=== PATIENT | male | born 1945 | race Caucasian/White ===

== ENCOUNTER 2017-07-18 15:46 | Emergency (ER) | payer OTHER, MEDICARE ==
[2017-07-18 16:01] VITALS: BP 219/95; BMI 25.2
[2017-07-18] MEDS ORDERED: TORADOL 60 MG VIAL IM ONE (16:16)
--- NOTE | 2017-07-18 16:17 | DR.GENAD ---
HPI - PCP Primary Care Physician: Dr. Morton - HPI Comment HPI Comment: HISTORY BELOW. - Complaint/Symptoms Chief Complaint Doctors Comments: PAIN LEFT FLANK GOING INTO LLQ OF ABDOMEN SINCE THIS AM. PAIN STARTED IN LT FLANK AND LOWER BACK. PAIN GETTING WORSE. NO FEVER OR DYSURIA. Chief Complaint:: Pt woke up this morning with pain in his left lower back. The pain is described as constant and throbbing and stabbing and radiates into left lower abdomen. Self Treatment fo Chief Complaint: [place] 10/325 at 13:45 with no relief - Nurses notes reviewed Nurses Notes Review: Yes - Source History Provided: Patient - Mode of Arrival Mode of Arrival: Ambulatory - Timing Onset of Chief Complaint: 07/18/17 Came on: Suddenly - Duration Duration: Constant Duration: Hours - Severity Severity: Moderate PMH - PMH Past Medical History: Yes Past Medical History: Dyslipidemia, Hypertension, Kidney Stones Past Surgical History: Yes Surgical History: Ortho Surgery Past Surgical History Comment: cataract. back surgery x 3. neck surgery x 2. right shoulder surgery - Family History History of Family Medical Conditions: Yes Family Medical History: Coronary Artery Disease, Hypertension - Social History Does patient currently use any type of tobacco product: Yes Have you used tobacco products in the last 12 months: Yes Type of Tobacco Use: Cigarettes Does any household member use tobacco: Yes Alcohol Use: None Do you use any recreational Drugs:: No Lives With: Spouse - infectious screening In the last 2 months have you had wt loss of >10#?: NO Have you had fever, night sweats or hemotysis?: No Have you traveled outside the country in the last 6 months?: No Isolation: Standard ROS - Review of Systems Constitutional: No Symptoms Reported Eyes: No Symptoms Reported ENTM: No Symptoms Reported Respiratoy: No Symptoms Reported Cardiovascular: No Symptoms Reported Gastrointestinal/Abdominal: Abdominal Pain, Nausea Genitourinary: Pain (LT FLANK PAIN) Neurological: No Symptoms Reported Musculoskeletal: Back Pain ( HAVE CHRONIC BACK PAIN BUT IS WORSE TODAY.), Back ( LT FLANK PAIN) Integumentary: No Symptoms Reported Hematologic/Lymphatic: No Symptoms Reported Endocrine: No Symptoms Reported All Other Systems: Reviewed and Negative PE - Vital Signs Vitals: Temperature 97.1 F Pulse Rate 67 Respiratory Rate 20 Blood Pressure 219/95 O2 Sat by Pulse Oximetry 100 - General Limitations: No Limitations General Appearance: Alert - Head Head Exam: Normal Inspection - Eyes Eye exam: Normal Appearance - ENT ENT Exam: Normal External Ear Exam External Ear Exam: Normal External Inspection TM/Canal Exam: Bilateral Normal Nose Exam: Normal Nose Exam Mouth Exam: Normal Inspection Throat Exam: Normal Inspection - Neck Neck Exam: Trachea Midline - Chest Chest Inspection: Symmetric Chest Wall Rise - Respiratory Respiratory Exam: Normal Lung Sounds Bilat Respiratory Exam: Bilateral Clear to Auscultation - Cardiovascular Cardiovascular Exam: Regular Rate, Normal Rhythm, Normal Heart Sounds - Abdominal Exam Abdominal Exam: Normal Bowel Sounds, Soft, Tenderness Abdominal Tenderness: LLQ, Moderate - Back Back Exam: (L) CVA Tenderness - Neurologic Neurological Exam: Alert, Oriented X3 - Psychiatric Psychiatric Exam: Normal Affect, Normal Mood - Skin Skin Exam: Normal Color MDM - Additional Information Additional Information Obtained From: Family - Differential Diagnosis Differential Diagnosis: KIDNEY STONE, UTI, FLANK PAIN, ANDOMINAL PAIN, MUSCULOSKELETAL PAIN. Course - Treatment Treatment: SEE ORDERS. IM TORADOL IN ED. PAIN IMPROVE. - Education/Counseling Education/Counseling: Patient, Family, Education Educated On: Diagnosis, Needs for Follow Up ROR - Labs Reviewed Laboratory Results Reviewed?: Yes Result Diagrams: 07/18/17 18:04 07/18/17 18:04 Laboratory: WBC 8.1 X10^3/uL (3.6-10.0) 07/18/17 18:04 RBC 4.41 X10^6/uL (4.7-6.0) L 07/18/17 18:04 Hgb 13.5 g/dL (13.5-18.0) 07/18/17 18:04 Hct 37.9 % (42.0-54.0) L 07/18/17 18:04 MCV 85.9 fL (80.0-100.0) 07/18/17 18:04 MCH 30.7 pg (27.0-34.0) 07/18/17 18:04 MCHC 35.7 g/dL (33.0-35.0) H 07/18/17 18:04 RDW 14.3 % (11.6-16.5) 07/18/17 18:04 Plt Count 255 X10^3/uL (150.0-450.0) 07/18/17 18:04 MPV 7.9 fL (7.4-11.0) 07/18/17 18:04 Neut % (Auto) 77.2 % (42.0-75.0) H 07/18/17 18:04 Lymph % (Auto) 14.3 % (21.0-51.0) L 07/18/17 18:04 [place] % (Auto) 6.6 % (0.0-13.0) 07/18/17 18:04 Eos % (Auto) 0.9 % (0.9-2.9) 07/18/17 18:04 Baso % (Auto) 1.0 % (0.2-1.0) 07/18/17 18:04 Neut # (Auto) 6.2 x10^3/uL (2.2-4.8) H 07/18/17 18:04 Lymph # (Auto) 1.2 X10^3/uL (1.3-2.9) L 07/18/17 18:04 [place] # (Auto) 0.5 x10^3/uL (0.3-0.8) 07/18/17 18:04 Eos # (Auto) 0.1 x10^3/uL (0.0-0.2) 07/18/17 18:04 Baso # (Auto) 0.1 X10^3/uL (0.0-0.1) 07/18/17 18:04 Absolute Nucleated RBC 0.0 /100WBC 07/18/17 18:04 Sodium 134 mmol/L (136-145) L 07/18/17 18:04 Corrected Sodium 135 mmol/L (136-145) L 07/18/17 18:04 Potassium 3.7 mmol/L (3.5-5.1) 07/18/17 18:04 Chloride 99 mmol/L (98-107) 07/18/17 18:04 Carbon Dioxide 27.7 mmol/L (21-32) 07/18/17 18:04 BUN 18 mg/dL (7-18) 07/18/17 18:04 Creatinine 1.33 mg/dL (0.70-1.30) H 07/18/17 18:04 Est GFR (MDRD) Af Amer > 60 (>60) 07/18/17 18:04 Est GFR (MDRD) Non-Af 56 (>60) L 07/18/17 18:04 Glucose 137 mg/dL (65-99) H 07/18/17 18:04 Calcium 8.3 mg/dL (8.5-10.1) L 07/18/17 18:04 Corrected Calcium 8.9 mg/dL (8.5-10.1) 07/18/17 18:04 Total Bilirubin 0.20 mg/dL (0.2-1.0) 07/18/17 18:04 AST 16 Units/L (15-37) 07/18/17 18:04 ALT 23 Units/L (12-78) 07/18/17 18:04 Alkaline Phosphatase 76 Units/L (46-116) 07/18/17 18:04 Total Protein 7.1 g/dL (6.4-8.2) 07/18/17 18:04 Albumin 3.2 g/dL (3.4-5.0) L 07/18/17 18:04 Globulin 3.9 g/dL (2.5-4.5) 07/18/17 18:04 Albumin/Globulin Ratio 0.8 Ratio (1.1-2.1) L 07/18/17 18:04 Specimen Type Clean catch urine 07/18/17 16:11 Urine Color Yellow (YELLOW) 07/18/17 16:11 Urine Appearance Clear (CLEAR) 07/18/17 16:11 Urine pH 5.0 (5.0 - 8.0) 07/18/17 16:11 Ur Specific [place] 1.020 (1.000-1.030) 07/18/17 16:11 Urine Protein Negative (NEGATIVE) 07/18/17 16:11 Urine Glucose (UA) Negative (NEGATIVE) 07/18/17 16:11 Urine Ketones Negative (NEGATIVE) 07/18/17 16:11 Urine Occult Blood 3+ (NEGATIVE) 07/18/17 16:11 Urine Nitrite Negative (NEGATIVE) 07/18/17 16:11 Urine Bilirubin Negative (NEGATIVE) 07/18/17 16:11 Urine Urobilinogen Normal (NORMAL) 07/18/17 16:11 Ur Leukocyte Esterase Negative (NEGATIVE) 07/18/17 16:11 Urine RBC 3-5 /HPF (NONE SEEN) 07/18/17 16:11 Urine WBC 0-2 /HPF (NONE SEEN) 07/18/17 16:11 Ur Squamous Epith Cells Negative /HPF (NEGATIVE) 07/18/17 16:11 Urine Bacteria Negative /HPF (NEGATIVE) 07/18/17 16:11 Ur Culture Indicated? No/not indicated 07/18/17 16:11 - XRAY XRAY Interpreted by: Radiologist XRAY Findings: REPORT DISCUSS WITH PATIENT AND HIS FAMILY. - Diagnosis Discharge Problem: Kidney stone on left side - Discharge Plan Disposition: HOME, SELF-CARE Condition: Stable Prescriptions: Tamsulosin HCl [Flomax] 0.4 mg PO DAILY #30 cap - Follow ups/Referrals Follow ups/Referrals: MARLIN MORTON [Primary Care Provider] - 07/19/17 - Instructions Instructions: Kidney Stones, [id number] Additional Instructions: SEE YOUR UROLOGIST IN AM. RETURN TO ED IF WORSE.
[2017-07-18] MEDS ORDERED: TORADOL 60 MG VIAL ONE (16:19)
[2017-07-18 16:21] LABS: BILIRUBIN,URINE NEGATIVE (NEGATIVE); BLOOD/HEMOGLOBIN,URINE 3+ (NEGATIVE); GLUCOSE, URINE NEGATIVE (NEGATIVE); KETONES,URINE NEGATIVE (NEGATIVE); LEUKOCYTE ESTERASE ,URINE NEGATIVE (NEGATIVE); NITRITES,URINE NEGATIVE (NEGATIVE); PROTEIN,URINE NEGATIVE (NEGATIVE); UROBILINOGEN,URINE NORMAL (NORMAL)
[2017-07-18 16:27] LABS: APPEARANCE,URINE CLEAR (CLEAR); BACTERIA,URINE NEGATIVE /HPF (NEGATIVE); COLOR,URINE YELLOW (YELLOW); SQUAMOUS EPITHELIAL CELL,UR NEGATIVE /HPF (NEGATIVE)
--- NOTE | 2017-07-18 16:55 | CT ---
HISTORY: Left flank pain. Lower abdominal pain. Study: Computed tomography of the abdomen and pelvis: Multiple axial images were obtained throughou t the abdomen and pelvis. Intravascular contrast was not administered. Oral contrast was not admini stered. Radiation dose reduction techniques utilized. Comparison: 04/01/2014 Findings: There appears to be mild focal scarring in the right lower lobe, unchanged from the prior examination . No pulmonary nodules or parenchymal infiltrates are identified. Coronary arterial calcification i s noted. The heart size is normal. No appreciable pericardial effusion is noted. Examination of the abdomen demonstrates a hypodense lesion within the left lobe of the liver measuring approximately 13 mm in ma ximum dimension, unchanged. A very tiny 1 is also noted measuring approximately 2 mm in maximum dime nsion, unchanged. A hypodense lesion within the central aspect of the right lobe of the liver is als o unchanged. One in the inferior aspect of the right lobe of the liver adjacent to the gallbladder f anabell is unchanged. There are other scattered hypodense lesions, unchanged. These most likely are sm all cysts. The gallbladder is normal per CT criteria. No appreciable biliary duct dilatation is not ed. The pancreas is normal in its appearance. The spleen is normal in its appearance. The left adr enal gland is minimally thickened, unchanged. There is a hypodense mass in the genu of the right adr enal gland measuring 2 cm in maximum dimension consistent with an adenoma. The abdominal aorta shows mild atherosclerotic change. There is moderate in the common iliac arteries and their major branche s. The right kidney shows focal scarring in the lower pole of a moderate degree, unchanged. The left ki dney demonstrates mild intrarenal hydronephrosis with vbds-ys-vrgbqwro dilatation of the renal pelvis and mild of the proximal right ureter. There is a large calculus in the lower pole of the left kidn ey that is nonobstructing measuring approximately 17 mm in maximum dimension, increased in size. The re is a 2nd measuring approximately the same dimension. There is moderate perinephric stranding on t he left. There is minimal periureteral soft tissue stranding on the left. The left ureter remains m inimally to mildly dilated as it progresses to the bladder. There is what appears to be a partially obstructing calculus at the left ureteral vesical junction measuring approximately 5 mm in diameter. The right ureter as visualized is normal. The urinary bladder is nondistended. It is minimally thi ck wall. Mild prostate enlargement is noted. Seminal vesicles are symmetric. No evidence of free p elvic fluid or ascites is noted. The stomach is mildly distended with food material. The duodenum is borderline distended proximally. The small bowel is nondistended. I see no evidence of mesenteric adenopathy. The terminal ileum i s normal. The appendix is normal. A moderate amount stool is noted in the cecum. The transverse co deloris is normal in its appearance. The descending colon demonstrates a few diverticula. The sigmoid c olon demonstrates several diverticula. I see no evidence of diverticulitis. The sigmoid colon is mo derately redundant. The region of the rectum is normal. Examination of the bone windows this demonstrates ykqv-sv-reczfvfv lumbar spondylosis. This predomin ates at L5/S1. Vbmr-fr-eaicfjur degenerative changes noted in both hips. IMPRESSION: 1. There is srys-do-swzrfgoc hydronephrosis on the left with 2 intrarenal moderate to large-sized no nobstructing calculi in the lower pole. There is dilatation of the left ureter by a mild degree down to what appears to be a partially obstructing distal left ureteral calculus as described above. Thi s suggest at the ureteral vesicle junction. 2. Moderate perinephric stranding and periureteral soft tissue stranding is noted on the left. 3. Diverticulosis without evidence of diverticulitis. 4. Stable appearance of the right-sided adrenal adenoma. 5. Stable appearance of the hypodense lesions within the liver, possibly cysts. 6. Mild prostatic enlargement. Correlation with PSA is recommended. Reported By:
[2017-07-18] MEDS ORDERED: FLOMAX PO ONE (17:10)
[2017-07-18 18:13] LABS: BASOPHILS # (AUTO) 0.1 X10^3/uL (0.0-0.1); EOSINOPHILS # (AUTO) 0.1 x10^3/uL (0.0-0.2); EOSINOPHILS % (AUTO) 0.9 % (0.9-2.9); HEMATOCRIT 37.9 % (42.0-54.0); HEMOGLOBIN 13.5 g/dL (13.5-18.0); LYMPHOCYTES # (AUTO) 1.2 X10^3/uL (1.3-2.9); LYMPHOCYTES % (AUTO) 14.3 % (21.0-51.0); MEAN CORPUSCULAR HEMOGLOBIN 30.7 pg (27.0-34.0); MEAN CORPUSCULAR HGB CONC 35.7 g/dL (33.0-35.0); MEAN CORPUSCULAR VOLUME 85.9 fL (80.0-100.0); MEAN PLATELET VOLUME 7.9 fL (7.4-11.0); MONOCYTES # (AUTO) 0.5 x10^3/uL (0.3-0.8); MONOCYTES % (AUTO) 6.6 % (0.0-13.0); NEUTROPHILS # (AUTO) 6.2 x10^3/uL (2.2-4.8); NEUTROPHILS % (AUTO) 77.2 % (42.0-75.0); PLATELET COUNT 255 X10^3/uL (150.0-450.0); RED BLOOD COUNT 4.41 X10^6/uL (4.7-6.0); RED CELL DISTRIBUTION WIDTH 14.3 % (11.6-16.5); WHITE BLOOD COUNT 8.1 X10^3/uL (3.6-10.0)
[2017-07-18 18:26] LABS: ALANINE AMINOTRANSFERASE 23 Units/L (12-78); ALBUMIN 3.2 g/dL (3.4-5.0); ALKALINE PHOSPHATASE 76 Units/L (46-116); ASPARTATE AMINO TRANSFERASE 16 Units/L (15-37); BLOOD UREA NITROGEN 18 mg/dL (7-18); CALCIUM 8.3 mg/dL (8.5-10.1); CARBON DIOXIDE 27.7 mmol/L (21-32); CHLORIDE 99 mmol/L (98-107); COR CA(FOR HYPOALB) 8.9 mg/dL (8.5-10.1); COR NA(FOR HYPERGLY) 135 mmol/L (136-145); CREATININE 1.33 mg/dL (0.70-1.30); SODIUM 134 mmol/L (136-145); TOTAL PROTEIN 7.1 g/dL (6.4-8.2); eGFR BLACK RACES > 60 (>60); eGFR NON BLACK RACES 56 (>60)
== END 2017-07-18 18:08 | disposition home or self-care (01) ==
LOC: ER 15:57
DX: N20.0 Calculus of kidney (principal); R10.32 Left lower quadrant pain
CPT/HCPCS: 36415; 74176; 80053; 81001; 85025; 96372; 99283; 99284; J1885

== ENCOUNTER 2021-04-29 17:28 | Inpatient (IN) ==
[2021-04-29 17:51] LABS: BASOPHILS # (AUTO) 0.1 X10^3/uL (0.0-0.1); EOSINOPHILS # (AUTO) 0.1 x10^3/uL (0.0-0.2); HEMATOCRIT 21.4 % (42.0-54.0); HEMOGLOBIN 7.5 g/dL (13.5-18.0); LYMPHOCYTES # (AUTO) 1.8 X10^3/uL (1.3-2.9); LYMPHOCYTES % (AUTO) 44.9 % (21.0-51.0); MEAN CORPUSCULAR HEMOGLOBIN 30.6 pg (27.0-34.0); MEAN CORPUSCULAR HGB CONC 34.9 g/dL (33.0-35.0); MEAN CORPUSCULAR VOLUME 87.6 fL (80.0-100.0); MEAN PLATELET VOLUME 8.1 fL (7.4-11.0); MONOCYTES # (AUTO) 0.4 x10^3/uL (0.3-0.8); MONOCYTES % (AUTO) 11.1 % (0.0-13.0); NEUTROPHILS # (AUTO) 1.6 x10^3/uL (2.2-4.8); RED BLOOD COUNT 2.44 X10^6/uL (4.7-6.0); RED CELL DISTRIBUTION WIDTH 15.3 % (11.6-16.5)
--- NOTE | 2021-04-29 17:53 | DR.DIZZY ---
HPI Time seen Time Seen by Provider: 04/29/21 17:38 Complaint Chief Complaint Doctor Comments: FELT WEAK THIS AM. WAS DISCHARGED FROM [facility] YESTERDAY AFTER GI BLEED.HAS LUNG CANCER WITH METS TO R JAW AND LEFT LEG. Context Stroke Symptoms: None PMH PMH Past Medical History: Dyslipidemia, Hypertension and Kidney Stones Past Surgical History: Yes Surgical History: Ortho Surgery Family History Family Medical History: Coronary Artery Disease and Hypertension Social History Do you use any recreational Drugs:: No ROS Review of Systems Constitutional: Fatigue Eyes: No Symptoms Reported ENTM: No Symptoms Reported Respiratoy: No Symptoms Reported Cardiovascular: No Symptoms Reported Gastrointestinal/Abdominal: No Symptoms Reported Genitourinary: No Symptoms Reported Neurological: No Symptoms Reported Musculoskeletal: No Symptoms Reported Integumentary: No Symptoms Reported Hematologic/Lymphatic: No Symptoms Reported Endocrine: No Symptoms Reported Psychiatric: No Symptoms Reported All Other Systems: Reviewed and Negative PE Vital Signs Vitals: Temperature 98.1 F Pulse Rate 86 Respiratory Rate 12 Blood Pressure 117/65 O2 Sat by Pulse Oximetry 100 General General Appearance: Alert, In No Apparent Distress and Lethargic Head Head Exam: Normal Inspection Eyes Eye exam: Normal Appearance ENT ENT Exam: Normal Exam, Normal Oropharynx and Normal External Ear Exam Neck Neck Exam: Normal Inspection and Full ROM Chest Chest Inspection: Normal Inspection Respiratory Respiratory Exam: Normal Lung Sounds Bilat Cardiovascular Cardiovascular Exam: Regular Rate and Normal Rhythm Abdominal Exam Abdominal Exam: Normal Inspection, Normal Bowel Sounds and Soft Rectal Rectal Exam: Deferred Extremeties Extremities Exam: Normal Inspection and Full ROM Back Back Exam: Normal Inspection and Full ROM Neurologic Neurological Exam: Alert and Oriented X3 Psychiatric Psychiatric Exam: Normal Affect and Normal Mood Skin Skin Exam: Warm, Dry, Intact, Normal Color and Other (POOR SKIN TURGOR) MDM Additional Information Obtained Additional Findings: DEHYDRATION,LUNG CANCER,CACHEXIA DUE TO LUNG CANCER Differential Diagnosis Differential Diagnosis: Anemia, Dehydration and Other (LUNG CANCER) COURSE Treatment Treatment: PATIENT REMAINED RELATIVELY STABLE DURING ER VISIT. FOUND TO HAVE HGB OF 7.5 ON ER EVALUATION. WITH HISTORY OR RECENT UPPER GI BLEED AND CARTERIZATION WILL REFER TO OBSERVATION TO GET 2UPRBC'S AND GET CONSULTATION WITH LOCAL SURGEON TO FOLLOW FOR REPEAT UGI EVALUATION. WILL CONSULT BODY ART TECHNICIAN PHYSICIAN FOR OBSERVATION WITH SURGICAL CONSULT. .SPOKE TO DR LANG AT7:30 PM AND HE WILL ACCEPT THE PATIENT TO OBSERVATION TO GIVE BLOOD. PATIENT AND PATIENT'S SPOUSE WERE NOTIFIED OF THE INTENT AND AGREES WITH THE PLAN. ROR Labs Reviewed Laboratory Results Reviewed?: Yes Result Diagrams: 04/29/21 17:38 04/29/21 17: Laboratory: WBC 4.0 X10^3/uL (3.6-10.0) 04/29/21 17: RBC 2.44 X10^6/uL (4.7-6.0) L 04/29/21 17: Hgb 7.5 g/dL (13.5-18.0) L 04/29/21 17: Hct 21.4 % (42.0-54.0) L 04/29/21 17: MCV 87.6 fL (80.0-100.0) 04/29/21 17: MCH 30.6 pg (27.0-34.0) 04/29/21 17: MCHC 34.9 g/dL (33.0-35.0) 04/29/21: RDW 15.3 % (11.6-16.5) 04/29/21: Plt Count 237 X10^3/uL (150.0-450.0) 04/29/21 17: MPV 8.1 fL (7.4-11.0) 04/29/21 17: Neut % (Auto) 40.0 % (42.0-75.0) L 04/29/21 17: Lymph % (Auto) 44.9 % (21.0-51.0) 04/29/21 17: [place] % (Auto) 11.1 % (0.0-13.0) 04/29/21 17: Eos % (Auto) 2.0 % (0.9-2.9) 04/29/21 17: Baso % (Auto) 2.0 % (0.2-1.0) H 04/29/21: Neut # (Auto) 1.6 x10^3/uL (2.2-4.8) L 04/29/21 17: Lymph # (Auto) 1.8 X10^3/uL (1.3-2.9) 04/29/21 17: [place] # (Auto) 0.4 x10^3/uL (0.3-0.8) 04/29/21 17:38 Eos # (Auto) 0.1 x10^3/uL (0.0-0.2) 04/29/21 17:38 Baso # (Auto) 0.1 X10^3/uL (0.0-0.1) 04/29/21 17:38 Absolute Nucleated RBC 0.2 /100WBC 04/29/21 17:38 Sodium 135 mmol/L (136-145) L 04/29/21 17:38 Corrected Sodium 136 mmol/L (136-145) 04/29/21 17:38 Potassium 5.1 mmol/L (3.5-5.1) 04/29/21 17:38 Chloride 103 mmol/L (98-107) 04/29/21 17:38 Carbon Dioxide 29.3 mmol/L (21-32) 04/29/21 17:38 BUN 33 mg/dL (7-18) H 04/29/21 17:38 Creatinine 0.94 mg/dL (0.70-1.30) 04/29/21 17:38 Est GFR (MDRD) Af Amer > 60 (>60) 04/29/21 17:38 Est GFR (MDRD) Non-Af > 60 (>60) 04/29/21 17:38 Glucose 127 mg/dL (65-99) H 04/29/21 17:38 Calcium 7.8 mg/dL (8.5-10.1) L 04/29/21 17:38 Corrected Calcium 9.0 mg/dL (8.5-10.1) 04/29/21 17:38 Total Bilirubin 0.20 mg/dL (0.2-1.0) 04/29/21 17:38 AST 14 Units/L (15-37) L 04/29/21 17:38 ALT 15 Units/L (12-78) 04/29/21 17:38 Alkaline Phosphatase 71 Units/L (46-116) 04/29/21 17:38 Total Protein 5.5 g/dL (6.4-8.2) L 04/29/21 17:38 Albumin 2.5 g/dL (3.4-5.0) L 04/29/21 17:38 Globulin 3.0 g/dL (2.5-4.5) 04/29/21 17:38 Albumin/Globulin Ratio 0.8 Ratio (1.1-2.1) L 04/29/21 17:38 Blood Type A POSITIVE 04/29/21 18:35 Antibody Screen Negative 04/29/21 18:35 Crossmatch See Detail 04/29/21 18:35 Opioid Opioid Risk Tool Total: 0 Total Score Risk Category: Low Risk Copyright: Jerry LÓPEZ predicting aberrant behaviors
[2021-04-29 18:03] LABS: ALANINE AMINOTRANSFERASE 15 Units/L (12-78); ALBUMIN 2.5 g/dL (3.4-5.0); ALKALINE PHOSPHATASE 71 Units/L (46-116); ASPARTATE AMINO TRANSFERASE 14 Units/L (15-37); BLOOD UREA NITROGEN 33 mg/dL (7-18); CALCIUM 7.8 mg/dL (8.5-10.1); CARBON DIOXIDE 29.3 mmol/L (21-32); CHLORIDE 103 mmol/L (98-107); COR NA(FOR HYPERGLY) 136 mmol/L (136-145); CREATININE 0.94 mg/dL (0.70-1.30); SODIUM 135 mmol/L (136-145); TOTAL PROTEIN 5.5 g/dL (6.4-8.2); eGFR NON BLACK RACES > 60 (>60)
[2021-04-29] MEDS ORDERED: BENADRYL INJ 50 MG VIAL IVP ONE (19:40)
[2021-04-29] MEDS ORDERED: TYLENOL 325 MG TAB PO ONE (20:00)
[2021-04-29] MEDS ORDERED: LOVASTATIN 20 MG PO SCH (22:12)
[2021-04-29] MEDS ORDERED: PATIENT'S HOME MEDICATION (Oxycodone-Acetaminophen 10-325 mg Tablet) PO PRN (22:12)
[2021-04-29] MEDS ORDERED: VITAMIN D (1.25MG) PO SCH (23:00)
[2021-04-29 23:07] VITALS: BMI 19.0
[2021-04-29] MEDS: PERCOCET TAB 5/325 MG PO PRN (23:33)
[2021-04-29] MEDS: PROTONIX TAB 40 MG PO SCH (23:33)
[2021-04-29] MEDS: EFFEXOR TAB 50 MG (BID DOSING) PO SCH (23:35)
[2021-04-30] MEDS ORDERED: NS 250 ML IV 250 ML IV ONE ×2 (00:45→15:06)
[2021-04-30 04:33] LABS: BASOPHILS # (AUTO) 0.2 X10^3/uL (0.0-0.1); BASOPHILS % (AUTO) 4.7 % (0.2-1.0); EOSINOPHILS # (AUTO) 0.1 x10^3/uL (0.0-0.2); EOSINOPHILS % (AUTO) 1.4 % (0.9-2.9); HEMATOCRIT 22.7 % (42.0-54.0); HEMOGLOBIN 8.1 g/dL (13.5-18.0); LYMPHOCYTES # (AUTO) 1.3 X10^3/uL (1.3-2.9); LYMPHOCYTES % (AUTO) 35.3 % (21.0-51.0); MEAN CORPUSCULAR HEMOGLOBIN 31.4 pg (27.0-34.0); MEAN CORPUSCULAR HGB CONC 35.5 g/dL (33.0-35.0); MEAN CORPUSCULAR VOLUME 88.4 fL (80.0-100.0); MEAN PLATELET VOLUME 8.1 fL (7.4-11.0); MONOCYTES # (AUTO) 0.5 x10^3/uL (0.3-0.8); MONOCYTES % (AUTO) 12.7 % (0.0-13.0); NEUTROPHILS # (AUTO) 1.7 x10^3/uL (2.2-4.8); NEUTROPHILS % (AUTO) 45.9 % (42.0-75.0); RED BLOOD COUNT 2.57 X10^6/uL (4.7-6.0); RED CELL DISTRIBUTION WIDTH 15.1 % (11.6-16.5); WHITE BLOOD COUNT 3.7 X10^3/uL (3.6-10.0)
[2021-04-30 04:47] LABS: ALANINE AMINOTRANSFERASE 17 Units/L (12-78); ALBUMIN 2.4 g/dL (3.4-5.0); ALKALINE PHOSPHATASE 64 Units/L (46-116); ASPARTATE AMINO TRANSFERASE 15 Units/L (15-37); BLOOD UREA NITROGEN 43 mg/dL (7-18); CALCIUM 7.5 mg/dL (8.5-10.1); CARBON DIOXIDE 26.1 mmol/L (21-32); CHLORIDE 103 mmol/L (98-107); COR CA(FOR HYPOALB) 8.8 mg/dL (8.5-10.1); CREATININE 0.79 mg/dL (0.70-1.30); SODIUM 134 mmol/L (136-145); TOTAL PROTEIN 5.1 g/dL (6.4-8.2); eGFR NON BLACK RACES > 60 (>60)
[2021-04-30] MEDS: EFFEXOR TAB 50 MG (BID DOSING) PO SCH ×2 (08:33→20:35)
[2021-04-30] MEDS: FERROUS GLUCONATE PO SCH (08:33)
[2021-04-30] MEDS: VITAMIN B-12 PO SCH (08:34)
[2021-04-30] MEDS: PROTONIX TAB 40 MG PO SCH (08:34)
[2021-04-30] MEDS ORDERED: FERROUS SULFATE PO SCH (09:00)
[2021-04-30] MEDS ORDERED: PEPCID TAB 40 MG PO SCH (10:45)
--- NOTE | 2021-04-30 10:51 | DR.H&P ---
H&P - History & Physical for Day of: H&P Date: 04/29/21 - Chief Complaint Chief Complaint: WEAKNESS, DARK STOOLS, RECENT UPPER GI BLEED - History of Present Illness History of Present Illness: IS A 75 YEAR OLD PATIENT OF DR.LINA LOPEZ. HE PRESENTED TO THE ER WITH REPORTS OF GENERALIZED WEAKNESS. PATIENT REPORTS BEING DISCHARGED FROM [facility] ON 04/28/21 FOLLOWING TREATMENT FOR AN UPPER GI BLEED. PATIENT REPORTS HAVING A BLEEDING ULCER, WHICH WAS CAUTERIZED. HE REPORTS RECEIVING 7 UNITS OF PRBC WHILE THERE. HE DOES ADMIT TO HAVING ONE DARK STOOL, PRIOR TO PRESENTING TO THE HOSPITAL. PATIENT HAS A HISTORY OF LUNG CANCER WITH METS TO THE RIGHT JAW AND THE LEFT LEG. OTHER MEDICAL HISTORY INCLUDES DYSLIPIDEMIA, HTN, AND KIDNEY STONES. ON ARRIVAL TO THE ER, VITALS WERE 98.1-109-20-93%RA-127/65. LABS WERE OBTAINED. WBC 4.0, RBC 2.44, HGB 7.5, HCT 21.4, SODIUM 135, POTASSIUM 5.1, BUN 33, CREATININE 0.94, GLUCOSE 127, CALCIUM 7.8, AST 14, TOTAL PROTEIN 5.5, ALBUMIN 2.5. EKG WAS OBTAINED AND REVEALED: SINUS RHYTHM WITH HR 94. HE WAS ADMITTED TO THE HOSPITAL FOR FURTHER EVALUATION AND TREAMENT OF GI BLEED, ANEMIA, DEHYDRATION, AND CACHEXIA. WE ADMINISTERED ONE UNIT OF PACKED RED BLOOD CELLS ON ADMISSION. HGB INCREASED TO 8.1. HE WAS STARTED ON PEPCID 40MG IV BID, PROTONIX 40MG IV BID, AND HIS HOME MEDICATIONS OF LIPITOR, B-12, VITAMIN D, FERROUS GLUCONATE, PERCOCET, AND EFEXOR WERE RESUMED. OTHERWISE, WE PLAN TO FOLLOW [facility] AM LABS AND COTNINUE TO MONITOR. WE WILL MONITOR H&H. TIME SPENT ON CLINICAL ASSESSMENT, REVIEWING LABS AND IMAGING, DECISION MAKING, AND DOCUMENTATION GREATER THAN 75 MINUTES. - Past Medical History Past Medical History: Hypertension, Dyslipidemia, Kidney Stones Additional Medical History: LUNG CANCER WITH METS TO RIGHT JAW AND LEFT LEG - Past Surgical History Surgical History: Cholecystectomy, Ortho Surgery - Family History Family Medical History: Coronary Artery Disease, Hypertension - Social History Does patient currently use any type of tobacco product: Yes Have you used tobacco products in the last 12 months: Yes Type of Tobacco Use: Cigarettes How many years tobacco product used: 50 Does any household member use tobacco: Yes Alcohol Use: None Drug Use: None - Medications Home Medications: No Known Drug Allergies Allergy (Verified 07/18/17 15:47) CONTINUE taking the following medications cyanocobalamin (vitamin B-12) 1,000 mcg PO DAILY 04/29/21 [History] ergocalciferol (vitamin D2) [Vitamin D2] 1,250 mcg PO QWEEK 04/29/21 [History] ferrous sulfate [FeroSul] 325 mg PO DAILY 04/29/21 [History] lisinopril 5 mg PO DAILY PRN 04/29/21 [History] lovastatin 20 mg PO QHS 04/29/21 [History] ondansetron 4 mg PO Q6H PRN 04/29/21 [History] oxycodone-acetaminophen 1 tab PO Q6H PRN 04/29/21 [History] pantoprazole 40 mg PO BID 04/29/21 [History] venlafaxine 100 mg PO BID 04/29/21 [History] - Review of Systems Constitutional: Weakness Eyes: No Symptoms Reported ENT: No Symptoms Reported Respiratory: Shortness of Breath Cardiovascular: No Symptoms Reported Gastrointestinal: See HPI, Melena Genitourinary: No Symptoms Reported Musculoskeletal: No Symptoms Reported Skin: No Symptoms Reported Neurological: Weakness - Physical Exam Vital Signs: Temperature 98.9 F Pulse Rate [Left Brachial] 70 Pulse Rate 91 Respiratory Rate 20 Blood Pressure [Right Arm] 133/60 Blood Pressure 112/62 O2 Sat by Pulse Oximetry 100 Oriented: Normal Eyes: Normal Ear: Normal Nose: Normal Throat: Normal Respiratory: Diminished Throughout Cardiovascular: Tachycardia : Normal Auscultation: Bowel Sounds: Normal Palpation: Normal Tenderness: Normal Skin: Decreased [place] Musculoskeletal: Normal Psychiatric: Normal Mood Description: Calm Affect: Normal Speech Pattern: Clear - Assessment/Plan (1) GI bleed Qualifiers: GI bleed type/associated pathology: unspecified gastrointestinal hemorrhage type Qualified Code(s): K92.2 - Gastrointestinal hemorrhage, unspecified Status: Acute Plan: ADMIT, PEPCID 40MG IV BID, PROTONIX 40MG IV BID, AND HIS HOME MEDICATIONS OF LIPITOR, B-12, VITAMIN D, FERROUS GLUCONATE, PERCOCET, AND EFEXOR WERE RESUMED. MONITOR H&H, TRANSFUSE IF HGB LESS THAN 7 (2) Anemia Qualifiers: Anemia type: iron deficiency Iron deficiency anemia type: unspecified iron deficiency Qualified Code(s): D50.9 - Iron deficiency anemia, unspecified Status: Acute (3) Dehydration Status: Acute (4) Cachexia Status: Acute - Allergies Allergies/Adverse Reactions: Allergies Allergy/AdvReac Type Severity Reaction Status Date / Time No Known Drug Allergies Allergy Verified 07/18/17 15:47
[2021-04-30] MEDS: PEPCID 20 MG VIAL 20 MG in NS 50 ML IV 50 ML IV SCH ×2 (11:14→20:35)
[2021-04-30 12:23] LABS: HEMATOCRIT 22.2 % (42.0-54.0); HEMOGLOBIN 7.8 g/dL (13.5-18.0)
[2021-04-30] MEDS: PERCOCET TAB 5/325 MG PO PRN (17:03)
[2021-04-30 20:33] LABS: HEMATOCRIT 25.7 % (42.0-54.0); HEMOGLOBIN 8.9 g/dL (13.5-18.0)
[2021-04-30] MEDS: LIPITOR TAB 10 MG PO SCH (20:35)
[2021-04-30] MEDS: PROTONIX INJ 40 MG VIAL IVP SCH (20:36)
[2021-05-01] MEDS: PERCOCET TAB 5/325 MG PO PRN ×3 (05:10→20:06)
[2021-05-01 06:48] LABS: BASOPHILS % (AUTO) 1.3 % (0.2-1.0); EOSINOPHILS # (AUTO) 0.1 x10^3/uL (0.0-0.2); EOSINOPHILS % (AUTO) 2.9 % (0.9-2.9); HEMATOCRIT 25.4 % (42.0-54.0); HEMOGLOBIN 8.9 g/dL (13.5-18.0); LYMPHOCYTES # (AUTO) 1.1 X10^3/uL (1.3-2.9); LYMPHOCYTES % (AUTO) 36.4 % (21.0-51.0); MEAN CORPUSCULAR HEMOGLOBIN 30.4 pg (27.0-34.0); MEAN CORPUSCULAR HGB CONC 35.1 g/dL (33.0-35.0); MEAN CORPUSCULAR VOLUME 86.6 fL (80.0-100.0); MEAN PLATELET VOLUME 7.9 fL (7.4-11.0); MONOCYTES # (AUTO) 0.4 x10^3/uL (0.3-0.8); MONOCYTES % (AUTO) 12.4 % (0.0-13.0); NEUTROPHILS # (AUTO) 1.4 x10^3/uL (2.2-4.8); RED BLOOD COUNT 2.93 X10^6/uL (4.7-6.0); RED CELL DISTRIBUTION WIDTH 15.8 % (11.6-16.5)
[2021-05-01 07:10] LABS: ALANINE AMINOTRANSFERASE 17 Units/L (12-78); ALBUMIN 2.4 g/dL (3.4-5.0); ALKALINE PHOSPHATASE 63 Units/L (46-116); ASPARTATE AMINO TRANSFERASE 18 Units/L (15-37); BLOOD UREA NITROGEN 27 mg/dL (7-18); CALCIUM 7.2 mg/dL (8.5-10.1); CARBON DIOXIDE 25.9 mmol/L (21-32); CHLORIDE 106 mmol/L (98-107); COR CA(FOR HYPOALB) 8.5 mg/dL (8.5-10.1); CREATININE 0.82 mg/dL (0.70-1.30); SODIUM 138 mmol/L (136-145); TOTAL PROTEIN 5.1 g/dL (6.4-8.2); eGFR NON BLACK RACES > 60 (>60)
[2021-05-01] MEDS: PROTONIX INJ 40 MG VIAL IVP SCH ×2 (08:17→20:09)
[2021-05-01] MEDS: PEPCID 20 MG VIAL 20 MG in NS 50 ML IV 50 ML IV SCH ×2 (08:17→20:10)
[2021-05-01] MEDS: FERROUS GLUCONATE PO SCH (08:17)
[2021-05-01] MEDS: EFFEXOR TAB 50 MG (BID DOSING) PO SCH ×2 (08:17→20:07)
[2021-05-01] MEDS: ALBUMIN HUMAN 25%- 100 ML 100 ML IV SCH (09:10)
[2021-05-01] MEDS: VITAMIN B-12 PO SCH (09:11)
--- NOTE | 2021-05-01 10:27 | PCM.PROG ---
Progress Note - Progress Note for Day of Date of Exam: 05/01/21 - Subjective Subjective: WAS ADMITTED FOR TREATMENT OF GI BLEED, ANEMIA, DEHYDRATION, AND CACHEXIA. MEDICAL HISTORY INCLUDES LUNG CANCER WITH METS TO THE RIGHT JAW AND LEFT LEG, DYSLIPIDEMIA, HTN, AND KIDNEY STONES. TODAY, HE IS ALERT AND ORIENTED, LYING IN BED ON MORNING ROUNDS. HE CONTINUES WITH COMPLAINTS OF GENERALIZED WEAKNESS TODAY. HE DENIES HAVING ANY DARK BOWEL MOVEMENTS SINCE ADMISSION. ON EXAMINATION, HEART IS REGULAR IN RATE AND RHYTHM. BILATERAL LUNGS NOTED WITH DIMINISHED LUNG SOUNDS THROUGHOUT. ABDOMEN IS ROUND, SOFT, AND NON- TENDER WITH NORMAL BOWEL SOUNDS NOTED IN ALL QUADRANTS. HIS VITALS THIS MORNING ARE: 97.9-62-18-100%-136/63. LABS WERE OBTAINED. ABNORMAL LAB VALUES INCLUDE THE FOLLOWING: WBC 3.0, RBC 2.93, HGB 8.9, HCT 25.4, BUN 27, GLUCOSE 106, CALCIUM 7.2, TOTAL PROTEIN 5.1, ALBUMIN 2.4. HE IS CURRENTLY RECEIVING PEPCID 40MG IV BID, PROTONIX 40MG IV BID, AND HIS HOME MEDICATIONS OF LIPITOR, B-12, VITAMIN D, FERROUS GLUCONATE, PERCOCET, AND EFEXOR WERE RESUMED. WE WILL CONTINUE WITH CURRENT PLAN OF CARE TODAY. OTHERWISE, WE PLAN TO FOLLOW UP WITH AM LABS AND CONTINUE TO MONITOR. WE WILL MONITOR H&H THROUGHOUT THE DAY. TIME SPENT ON CLINICAL ASSESSMENT, REVIEWING LABS AND IMAGING, DECISION MAKING, AND DOCUMENTATION GREATER THAN 45 MINUTES. - Past Medical Family Social History Past Med/Fam/Surg Hx: No changes since H&P Allergies: Allergies No Known Drug Allergies Allergy (Verified 07/18/17 15:47) - Review of Systems ROS: No change since H&P - Vital Signs and I&O's Vital Signs: Temperature 97.9 F Pulse Rate [Left Brachial] 62 Pulse Rate 91 Respiratory Rate 18 Blood Pressure [Right Arm] 136/63 Blood Pressure 112/62 O2 Sat by Pulse Oximetry 100 Intake and Output: Intake & Output 04/28/21 04/29/21 04/30/21 05/01/21 11:59 11:59 11:59 11:59 Intake Total 490 / 490 2835 / 2835 Output Total 725 / 725 2300 / 2300 Balance -235 / -235 535 / 535 - Physical Exam Oriented: Normal Eyes: Normal Ear: Normal Nose: Normal Throat: Normal Respiratory: Generalized, Diminished Cardiovascular: Normal : Normal Auscultation: Bowel Sounds: Normal Palpation: Normal Tenderness: Normal Skin: Decreased Turgur Musculoskeletal: Normal Psychiatric: Normal Mood Description: Calm Affect: Normal Speech Pattern: Clear, Appropriate - Laboratory and Diagnostics Result Diagrams: 05/01/21 05:51 05/01/21 05:51 Labs: Laboratory WBC 3.0 X10^3/uL (3.6-10.0) L 05/01/21 05:51 RBC 2.93 X10^6/uL (4.7-6.0) L 05/01/21 05:51 Hgb 8.9 g/dL (13.5-18.0) L 05/01/21 05:51 Hct 25.4 % (42.0-54.0) L 05/01/21 05:51 MCV 86.6 fL (80.0-100.0) 05/01/21 05:51 MCH 30.4 pg (27.0-34.0) 05/01/21 05:51 MCHC 35.1 g/dL (33.0-35.0) H 05/01/21 05:51 RDW 15.8 % (11.6-16.5) 05/01/21 05:51 Plt Count 164 X10^3/uL (150.0-450.0) 05/01/21 05:51 MPV 7.9 fL (7.4-11.0) 05/01/21 05:51 Neut % (Auto) 47.0 % (42.0-75.0) 05/01/21 05:51 Lymph % (Auto) 36.4 % (21.0-51.0) 05/01/21 05:51 Jerome % (Auto) 12.4 % (0.0-13.0) 05/01/21 05:51 Eos % (Auto) 2.9 % (0.9-2.9) 05/01/21 05:51 Baso % (Auto) 1.3 % (0.2-1.0) H 05/01/21 05:51 Neut # (Auto) 1.4 x10^3/uL (2.2-4.8) L 05/01/21 05:51 Lymph # (Auto) 1.1 X10^3/uL (1.3-2.9) L 05/01/21 05:51 Jerome # (Auto) 0.4 x10^3/uL (0.3-0.8) 05/01/21 05:51 Eos # (Auto) 0.1 x10^3/uL (0.0-0.2) 05/01/21 05:51 Baso # (Auto) 0.0 X10^3/uL (0.0-0.1) 05/01/21 05:51 Absolute Nucleated RBC 0.1 /100WBC 05/01/21 05:51 Sodium 138 mmol/L (136-145) 05/01/21 05:51 Corrected Sodium TNP 05/01/21 05:51 Potassium 4.1 mmol/L (3.5-5.1) 05/01/21 05:51 Chloride 106 mmol/L (98-107) 05/01/21 05:51 Carbon Dioxide 25.9 mmol/L (21-32) 05/01/21 05:51 BUN 27 mg/dL (7-18) H 05/01/21 05:51 Creatinine 0.82 mg/dL (0.70-1.30) 05/01/21 05:51 Est GFR (MDRD) Af Amer > 60 (>60) 05/01/21 05:51 Est GFR (MDRD) Non-Af > 60 (>60) 05/01/21 05:51 Glucose 106 mg/dL (65-99) H 05/01/21 05:51 Calcium 7.2 mg/dL (8.5-10.1) L 05/01/21 05:51 Corrected Calcium 8.5 mg/dL (8.5-10.1) 05/01/21 05:51 Total Bilirubin 0.30 mg/dL (0.2-1.0) 05/01/21 05:51 AST 18 Units/L (15-37) 05/01/21 05:51 ALT 17 Units/L (12-78) 05/01/21 05:51 Alkaline Phosphatase 63 Units/L (46-116) 05/01/21 05:51 Total Protein 5.1 g/dL (6.4-8.2) L 05/01/21 05:51 Albumin 2.4 g/dL (3.4-5.0) L 05/01/21 05:51 Globulin 2.7 g/dL (2.5-4.5) 05/01/21 05:51 Albumin/Globulin Ratio 0.9 Ratio (1.1-2.1) L 05/01/21 05:51 SARS CoV-2 RNA Rapid GINA Negative (NEGATIVE) 04/29/21 20:03 Blood Type A POSITIVE 04/29/21 18:35 Antibody Screen Negative 04/29/21 18:35 Crossmatch See Detail 04/29/21 18:35 - Plan (1) GI bleed Status: Acute Qualifiers: GI bleed type/associated pathology: unspecified gastrointestinal hemorrhage type Qualified Code(s): K92.2 - Gastrointestinal hemorrhage, unspecified Plan: PEPCID 40MG IV BID, PROTONIX 40MG IV BID, AND HIS HOME MEDICATIONS OF LIPITOR, B-12, VITAMIN D, FERROUS GLUCONATE, PERCOCET, AND EFEXOR WERE RESUMED. MONITOR H&H, TRANSFUSE IF HGB LESS THAN 7 (2) Anemia Status: Acute Qualifiers: Anemia type: iron deficiency Iron deficiency anemia type: unspecified iron deficiency Qualified Code(s): D50.9 - Iron deficiency anemia, unspecified (3) Dehydration Status: Acute (4) Cachexia Status: Acute
[2021-05-01] MEDS ORDERED: COLACE SYRUP 100 MG UDC PO SCH (13:00)
[2021-05-01] MEDS: COLACE CAP 100 MG PO SCH ×2 (13:20→20:08)
[2021-05-01 14:14] LABS: HEMATOCRIT 25.8 % (42.0-54.0); HEMOGLOBIN 8.9 g/dL (13.5-18.0)
[2021-05-01] MEDS: LIPITOR TAB 10 MG PO SCH (20:08)
[2021-05-01 22:37] LABS: HEMOGLOBIN 8.3 g/dL (13.5-18.0)
[2021-05-01 22:40] LABS: HEMATOCRIT 23.7 % (42.0-54.0)
[2021-05-01] MEDS ORDERED: RESTORIL CAP 15 MG PO PRN (23:08)
[2021-05-01] MEDS ORDERED: RESTORIL CAP 15 MG PO ONE (23:11)
[2021-05-02 04:57] LABS: BASOPHILS # (AUTO) 0.1 X10^3/uL (0.0-0.1); BASOPHILS % (AUTO) 3.6 % (0.2-1.0); EOSINOPHILS # (AUTO) 0.1 x10^3/uL (0.0-0.2); EOSINOPHILS % (AUTO) 3.6 % (0.9-2.9); HEMATOCRIT 23.7 % (42.0-54.0); HEMOGLOBIN 8.1 g/dL (13.5-18.0); LYMPHOCYTES # (AUTO) 0.9 X10^3/uL (1.3-2.9); LYMPHOCYTES % (AUTO) 35.1 % (21.0-51.0); MEAN CORPUSCULAR HEMOGLOBIN 29.9 pg (27.0-34.0); MEAN CORPUSCULAR HGB CONC 34.3 g/dL (33.0-35.0); MEAN CORPUSCULAR VOLUME 87.2 fL (80.0-100.0); MEAN PLATELET VOLUME 7.4 fL (7.4-11.0); MONOCYTES # (AUTO) 0.3 x10^3/uL (0.3-0.8); MONOCYTES % (AUTO) 11.7 % (0.0-13.0); NEUTROPHILS # (AUTO) 1.2 x10^3/uL (2.2-4.8); RED BLOOD COUNT 2.71 X10^6/uL (4.7-6.0); RED CELL DISTRIBUTION WIDTH 15.6 % (11.6-16.5); WHITE BLOOD COUNT 2.6 X10^3/uL (3.6-10.0)
[2021-05-02 05:18] LABS: ALANINE AMINOTRANSFERASE 19 Units/L (12-78); ALBUMIN 2.6 g/dL (3.4-5.0); ALKALINE PHOSPHATASE 66 Units/L (46-116); ASPARTATE AMINO TRANSFERASE 16 Units/L (15-37); BLOOD UREA NITROGEN 19 mg/dL (7-18); CARBON DIOXIDE 26.3 mmol/L (21-32); CHLORIDE 107 mmol/L (98-107); COR CA(FOR HYPOALB) 8.1 mg/dL (8.5-10.1); CREATININE 0.77 mg/dL (0.70-1.30); SODIUM 139 mmol/L (136-145); TOTAL PROTEIN 5.1 g/dL (6.4-8.2); eGFR NON BLACK RACES > 60 (>60)
[2021-05-02] MEDS: ALBUMIN HUMAN 25%- 100 ML 100 ML IV SCH (09:02)
[2021-05-02] MEDS: COLACE CAP 100 MG PO SCH (09:04)
[2021-05-02] MEDS: PROTONIX INJ 40 MG VIAL IVP SCH (09:05)
[2021-05-02] MEDS: EFFEXOR TAB 50 MG (BID DOSING) PO SCH (09:05)
[2021-05-02] MEDS: FERROUS GLUCONATE PO SCH (09:05)
[2021-05-02] MEDS: VITAMIN B-12 PO SCH (09:06)
[2021-05-02] MEDS: PERCOCET TAB 5/325 MG PO PRN (09:20)
[2021-05-02] MEDS: PEPCID 20 MG VIAL 20 MG in NS 50 ML IV 50 ML IV SCH (11:42)
[2021-05-02 15:26] VITALS: BP 158/71
== END 2021-05-02 13:10 | disposition home health service (06) | DRG 378 ==
LOC: ER 17:28 → MED/SURG 17:28 → OBSVTOIN 20:00 → MED/SURG 21:38
PROVIDERS: ADMIT Internal Medicine; ATTEND Internal Medicine
DX: C79.89 Secondary malignant neoplasm of other specified sites; K92.2 Gastrointestinal hemorrhage, unspecified; E78.2 Mixed hyperlipidemia; Z92.21 Personal history of antineoplastic chemotherapy; E86.0 Dehydration; I10 Essential (primary) hypertension; R64 Cachexia; D50.8 Other iron deficiency anemias; Z20.822 Contact with and (suspected) exposure to COVID-19; C34.90 Malignant neoplasm of unspecified part of unspecified bronchus or lung